=== PATIENT | male | born 1950 | race Caucasian/White ===

== ENCOUNTER 2019-08-12 10:34 | Inpatient (IN) ==
[2019-08-12] MEDS ORDERED: GLUCAGON 1 MG VIAL IM PRN ×2 (11:01)
[2019-08-12] MEDS ORDERED: DEXTROSE 10% 250 ML BAG IV PRN ×2 (11:01)
[2019-08-12 11:20] LABS: Basophils % 0.7 % (0.0-0.8); Eosinophils # 0.1 10*3/uL (0.0-0.87); Eosinophils % 2.2 % (0.00-10.9); Hematocrit 46.7 VOL% (42.0-52.0); Hemoglobin 15.6 GM/DL (14.0-18.0); Immature Granulocytes % 0.7 %; Immature Granulocytes Absolute 0.03 #; Lymphocytes % 22.9 % (21.2-54.2); Mean Corpuscular HGB Conc 33.4 GM/DL (32-36); Mean Corpuscular Volume 93.8 FL (87-102); Mean Platelet Volume 11.1 FL (9.6-12.0); Monocytes % 10.8 % (1.7-12.7); Neutrophils % 62.7 % (38.7-73.9); Platelet Count 125 T/CUMM (130-400); Red Blood Count 4.98 MC/CUMM (3.8-5.5); Red Cell Distribution Width 13.2 % (9.3-17.3); White Blood Count 4.6 T/CUMM (4-12)
[2019-08-12 11:39] LABS: Albumin 3.9 G/DL (3.4-5.0); Bilirubin,Total 0.8 MG/DL (0.2-1.0); Calcium 8.9 MG/DL (8.5-10.1); Total Protein 7.8 G/DL (6.4-8.3)
[2019-08-12] MEDS: INSULIN LISPRO 100 UNIT/ML SUBCUT SCH ×3 (12:07→21:19)
[2019-08-12] MEDS: SODIUM CHLORIDE 0.9% 1,000 ML IV SCH (12:09)
[2019-08-12] MEDS ORDERED: NITROGLYCERIN SL 0.4 MG TABLET SL PRN (13:39)
[2019-08-12] MEDS ORDERED: SIMVASTATIN 40 MG TABLET PO SCH (13:45)
[2019-08-12 14:21] LABS: ABG Base Excess 1.7 MMOL/L (-2.5-2.5); ABG HCO3 25.8 MMOL/L (20-26); ABG Oxygen Saturation 96.9 % (95-100); ABG PCO2 45.5 MM HG (35-48); ABG PH 7.387 (7.35-7.45); ABG PO2 84.1 MM HG (80-95); ABG TCO2 23.1 MMOL/L (23-27)
[2019-08-12] MEDS: CHLORHEXIDINE 4% SOLN 118 ML BOTTLE TOP SCH ×2 (14:57→21:19)
[2019-08-12] MEDS: hydroCHLOROthiazide 12.5 MG CAPSULE PO SCH (14:58)
[2019-08-12] MEDS: ISOSORBIDE MONONITRATE 20 MG TABLET PO SCH ×2 (14:59→21:18)
[2019-08-12] MEDS: amLODIPine 10 MG TABLET PO SCH (15:00)
[2019-08-12] MEDS ORDERED: ASPIRIN EC 325 MG TABLET PO SCH (21:00)
[2019-08-12] MEDS ORDERED: NIACIN 500 MG TABLET PO SCH (21:00)
[2019-08-12] MEDS: CHLORHEXIDINE 0.12% ORAL RINSE 60 ML BOTTLE SWISH/SPIT SCH (21:19)
[2019-08-13] MEDS ORDERED: VANCOMYCIN 500 MG VIAL ONE (04:22)
[2019-08-13] MEDS ORDERED: PAPAVERINE 60 MG/2 ML VIAL ONE (04:22)
[2019-08-13] MEDS ORDERED: VANCOMYCIN 1,000 MG VIAL ONE (04:22)
[2019-08-13] MEDS ORDERED: LACTATED RINGERS 1,000 ML IV SCH (06:00)
[2019-08-13] MEDS ORDERED: CEFUROXIME INJ 1,500 MG in SYRINGE 1 EACH IV ONE (06:00)
[2019-08-13] MEDS ORDERED: PHENYLEPHRINE DRIP 20 MG/250 ML PREMIX IV ONE (06:00)
[2019-08-13] MEDS ORDERED: CALCIUM CHLORIDE 1,000 MG/10 ML VIAL IV ONE (06:00)
[2019-08-13] MEDS ORDERED: HEPARIN/NACL 0.9% 2 UNITS/ML 500 ML IV ONE (06:00)
[2019-08-13] MEDS ORDERED: LORazepam 1 MG TABLET PO ONE (06:00)
[2019-08-13] MEDS ORDERED: PANTOPRAZOLE 40 MG TABLET PO ONE (06:00)
[2019-08-13] MEDS ORDERED: SODIUM CHLORIDE 0.9% 1,000 ML IV ONE (06:01)
[2019-08-13] MEDS ORDERED: LACTATED RINGERS 1,000 ML IV ONE (06:01)
[2019-08-13] MEDS ORDERED: ETOMIDATE 40 MG/20 ML VIAL IV ONE (06:01)
[2019-08-13] MEDS ORDERED: NITROGLYCERIN DRIP 50 MG/250 ML BOTTLE IV ONE (06:01)
[2019-08-13] MEDS ORDERED: ePHEDrine 50 MG/ML VIAL ONE (06:01)
[2019-08-13] MEDS ORDERED: MIDAZOLAM 10 MG/2 ML VIAL ONE (06:01)
[2019-08-13] MEDS ORDERED: SUFentanil 250 MCG/5 ML AMP ONE (06:01)
[2019-08-13] MEDS ORDERED: VECURONIUM 10 MG VIAL IV ONE (06:01)
[2019-08-13] MEDS ORDERED: AMINOCAPROIC ACID 5,000 MG/20 ML VIAL ONE (06:01)
[2019-08-13] MEDS ORDERED: SODIUM CHLORIDE 0.9% 250 ML IV ONE (06:01)
[2019-08-13 07:35] LABS: ABG Base Excess 2.9 MMOL/L (-2.5-2.5); ABG HCO3 27.3 MMOL/L (20-26); ABG Oxygen Saturation 99.2 % (95-100); ABG PCO2 41.1 MM HG (35-48); ABG PO2 365.9 MM HG (80-95); ABG TCO2 28.6 MMOL/L (23-27); Glucose Heart Surgery 157 MG/DL (74-106); Hemoglobin Heart Surgery 14.6 G/DL (14.0-18.0); Ionized Calcium Arterial 1.14 MMOL/L (1.21-1.46); PCO2 Patient Temp Arterial 41.1 MMHG; PO2 Patient Temp Arterial 365.9 MM HG; Patient Temperature 37 CELCIUS; Potassium Heart/CVR 3.5 MMOL/L (3.5-5.1); Sodium Heart/CVR 137 MMOL/L (135-145)
[2019-08-13 07:57] LABS: Apearance,Urine CLEAR (Clear); Bilirubin,Urine Negative (Negative); Blood, Urine Small mg/dL (Negative); Glucose,Urine (UA) Negative (Negative); Ketones,Urine Negative (Negative); Mucus,Urine Occasional /LPF (Occasional); Nitrite,Urine Negative (Negative); Protein,Urine Negative; RBC,Urine 1 /HPF (0-4); Transitional Epi Cells,Urine Occasional /HPF (<1); Urine Color Yellow (Yellow); Urine Urobilinogen < 2.0 EU/DL (0.2-1.0)
[2019-08-13 09:07] LABS: Hematocrit Heart Surgery 33.3 PERCENT (42-52); Hemoglobin Heart Surgery 10.8 G/DL (14.0-18.0); PCO2 Patient Temp Venous 37.6 MM HG; PH Patient Temp Venous 7.477; PO2 Patient Temp Venous 35.7 MM HG; Potassium Heart/CVR 3.6 MMOL/L (3.5-5.1); VBG Base Excess 4.3 MEQ/L (0-4); VBG Oxygen Saturation 82.4 %; VBG PCO2 43.5 MMHG (41-51); VBG PH 7.433; VBG PO2 43.9 MMHG (17-40)
[2019-08-13 09:35] LABS: Hemoglobin Heart Surgery 11.7 G/DL (14.0-18.0); PCO2 Patient Temp Venous 38.7 MM HG; PH Patient Temp Venous 7.475; PO2 Patient Temp Venous 36.6 MM HG; VBG Base Excess 4.8 MEQ/L (0-4); VBG HCO3 28.4 MEQ/L (24-28); VBG Oxygen Saturation 83.3 %; VBG PCO2 44.8 MMHG (41-51); VBG PH 7.431; VBG PO2 45.1 MMHG (17-40)
[2019-08-13 10:06] LABS: Hemoglobin Heart Surgery 13.2 G/DL (14.0-18.0); PCO2 Patient Temp Venous 39.7 MM HG; PH Patient Temp Venous 7.457; PO2 Patient Temp Venous 42.9 MM HG; Potassium Heart/CVR 4.3 MMOL/L (3.5-5.1); VBG Base Excess 3.4 MEQ/L (0-4); VBG HCO3 27.4 MEQ/L (24-28); VBG Oxygen Saturation 81.8 %; VBG PCO2 39.7 MMHG (41-51); VBG PH 7.457; VBG PO2 42.9 MMHG (17-40)
[2019-08-13] MEDS ORDERED: THROMBIN TOPICAL (RECOMBINANT) 5,000 UNIT VIAL TOP ONE (10:06)
[2019-08-13 10:40] LABS: ABG Base Excess 2.8 MMOL/L (-2.5-2.5); ABG HCO3 26.9 MMOL/L (20-26); ABG PCO2 43.1 MM HG (35-48); ABG PH 7.417 (7.35-7.45); ABG TCO2 24.2 MMOL/L (23-27); Glucose Heart Surgery 235 MG/DL (74-106); Hematocrit Heart Surgery 39.9 PERCENT (42-52); Ionized Calcium Arterial 1.18 MMOL/L (1.21-1.46); PCO2 Patient Temp Arterial 43.1 MMHG; PH Patient Temp Arterial 7.417; Patient Temperature 37 CELCIUS; Potassium Heart/CVR 3.7 MMOL/L (3.5-5.1); Sodium Heart/CVR 139 MMOL/L (135-145)
[2019-08-13] MEDS ORDERED: PROTAMINE SULFATE 250 MG/25 ML VIAL IV ONE (10:46)
[2019-08-13] MEDS ORDERED: MAGNESIUM SULFATE 5 GM/10 ML VIAL IV ONE (10:46)
[2019-08-13] MEDS ORDERED: MANNITOL 100 GM/500 ML BAG IV ONE (10:46)
[2019-08-13] MEDS ORDERED: SODIUM BICARBONATE 50 MEQ/50 ML VIAL IV ONE ×2 (10:46→11:22)
[2019-08-13] MEDS ORDERED: ALBUMIN 25% 25 GM/100 ML VIAL IV ONE (10:46)
[2019-08-13] MEDS ORDERED: DEXTROSE 5% KCL 20 MEQ 20 MEQ/1,000 ML BAG IV ONE (10:46)
[2019-08-13] MEDS ORDERED: LIDOCAINE 2% 5 ML VIAL ONE (10:46)
[2019-08-13] MEDS ORDERED: FUROSEMIDE 20 MG/2 ML VIAL ONE (10:47)
[2019-08-13] MEDS ORDERED: methylPREDNISolone SOD SUC 1,000 MG/8 ML VIAL ONE (10:47)
[2019-08-13] MEDS ORDERED: PROTAMINE SULFATE 50 MG/5 ML VIAL IV ONE ×2 (10:47→11:44)
[2019-08-13] MEDS ORDERED: HEPARIN 10,000 UNIT/10 ML VIAL ONE (10:47)
[2019-08-13] MEDS ORDERED: POTASSIUM CHLORIDE RIDER 100 ML IV ONE (11:22)
[2019-08-13] MEDS ORDERED: PHENYLEPHRINE DRIP 40 MG/250 ML PREMIX IV ONE (11:22)
[2019-08-13] MEDS ORDERED: CALCIUM CHLORIDE 1,000 MG/10 ML SYRINGE IV ONE (11:22)
[2019-08-13] MEDS ORDERED: ALBUMIN 5% 12.5 GM/250 ML VIAL IV ONE (11:23)
[2019-08-13] MEDS ORDERED: MIDAZOLAM 10 MG/2 ML VIAL IV PRN (11:39)
[2019-08-13] MEDS ORDERED: ALBUMIN 5% 12.5 GM in PREMIX 1 EACH IV PRN (11:39)
[2019-08-13] MEDS ORDERED: INSULIN REGULAR 100 UNIT/ML IV PRN (11:39)
[2019-08-13] MEDS ORDERED: MORPHINE 10 MG/1 ML VIAL IV PRN (11:39)
[2019-08-13] MEDS ORDERED: PHENYLEPHRINE DRIP 40 MG/250 ML PREMIX IV PRN (11:39)
[2019-08-13] MEDS ORDERED: ACETAMINOPHEN 650 MG SUPP RECTAL PRN (11:39)
[2019-08-13] MEDS ORDERED: POTASSIUM CHLORIDE RIDER 10 MEQ in PREMIX 1 EACH IV PRN (11:39)
[2019-08-13] MEDS ORDERED: ONDANSETRON 4 MG/2 ML VIAL IV PRN (11:39)
[2019-08-13] MEDS ORDERED: NITROPRUSSIDE 100 MG in DEXTROSE 5% 250 ML IV PRN (11:39)
[2019-08-13] MEDS ORDERED: DEXTROSE 10% 250 ML BAG IV PRN ×2 (11:39)
[2019-08-13] MEDS ORDERED: CALCIUM CHLORIDE 1,000 MG/10 ML SYRINGE IV PRN (11:39)
[2019-08-13] MEDS ORDERED: MAGNESIUM SULF RIDER 4 GM in PREMIX 1 EACH IV PRN (11:39)
[2019-08-13] MEDS ORDERED: MAGNESIUM SULF RIDER 2 GM in PREMIX 1 EACH IV PRN (11:39)
[2019-08-13] MEDS ORDERED: VECURONIUM 10 MG VIAL IV PRN ×2 (11:39)
[2019-08-13] MEDS ORDERED: INSULIN REGULAR 100 UNIT/ML IV ONE (11:39)
[2019-08-13] MEDS ORDERED: MIDAZOLAM 2 MG/2 ML VIAL IV PRN (11:39)
[2019-08-13] MEDS ORDERED: MORPHINE 4 MG/1 ML VIAL IV PRN (11:39)
[2019-08-13] MEDS ORDERED: GLYCOPYRROLATE 0.4 MG/2 ML VIAL ONE (11:47)
[2019-08-13 11:49] LABS: ABG Base Excess 1.9 MMOL/L (-2.5-2.5); ABG HCO3 26.1 MMOL/L (20-26); ABG Oxygen Saturation 99.4 % (95-100); ABG PCO2 41.6 MM HG (35-48); ABG PH 7.415 (7.35-7.45); ABG TCO2 23.1 MMOL/L (23-27); Glucose Heart Surgery 216 MG/DL (74-106); Hematocrit Heart Surgery 41.6 PERCENT (42-52); Hemoglobin Heart Surgery 13.6 G/DL (14.0-18.0)
[2019-08-13 11:57] LABS: Basophils % 0.3 % (0.0-0.8); Eosinophils # 0.1 10*3/uL (0.0-0.87); Eosinophils % 0.9 % (0.00-10.9); Hematocrit 38.8 VOL% (42.0-52.0); Hemoglobin 13.2 GM/DL (14.0-18.0); Immature Granulocytes % 0.5 %; Immature Granulocytes Absolute 0.03 #; Lymphocytes # 0.5 10*3/uL (1.4-4.0); Lymphocytes % 8.6 % (21.2-54.2); Mean Corpuscular Volume 91.3 FL (87-102); Mean Platelet Volume 11.4 FL (9.6-12.0); Neutrophils % 83.7 % (38.7-73.9); Red Blood Count 4.25 MC/CUMM (3.8-5.5); Red Cell Distribution Width 12.9 % (9.3-17.3); White Blood Count 5.8 T/CUMM (4-12)
[2019-08-13 11:58] LABS: Platelet Count 109 T/CUMM (130-400)
[2019-08-13] MEDS: CHLORHEXIDINE 4% SOLN 118 ML BOTTLE TOP SCH (12:00)
[2019-08-13] MEDS ORDERED: SODIUM CHLORIDE 0.45% 1,000 ML IV SCH ×2 (12:00)
[2019-08-13] MEDS: LACTATED RINGERS 250 ML IV PRN ×8 (12:00→14:20)
[2019-08-13] MEDS: INSULIN LISPRO 100 UNIT/ML SUBCUT SCH (12:03)
[2019-08-13] MEDS: SODIUM CHLORIDE 0.9% 1,000 ML IV SCH (12:03)
[2019-08-13] MEDS: CHLORHEXIDINE 0.12% ORAL RINSE 60 ML BOTTLE SWISH/SPIT SCH ×2 (12:03→20:51)
[2019-08-13] MEDS: ISOSORBIDE MONONITRATE 20 MG TABLET PO SCH (12:04)
[2019-08-13] MEDS: amLODIPine 10 MG TABLET PO SCH (12:04)
[2019-08-13] MEDS: hydroCHLOROthiazide 12.5 MG CAPSULE PO SCH (12:04)
[2019-08-13 12:12] LABS: INR 1.1; PT Patient Result 11.4 SECS (9.8-11.9); Partial Thromboplastin Time 28.1 SECS (23.9-33.8)
[2019-08-13] MEDS: POTASSIUM CHLORIDE RIDER 20 MEQ in PREMIX 1 EACH IV PRN ×4 (12:20→21:15)
[2019-08-13 12:22] LABS: Albumin 3.7 G/DL (3.4-5.0); Bilirubin,Total 2.2 MG/DL (0.2-1.0); Calcium 9.1 MG/DL (8.5-10.1); Osmolality,Calculated 279.7 MOS/KG (273-304); Total Protein 6.7 G/DL (6.4-8.3)
[2019-08-13] MEDS: KETOROLAC 30 MG/1 ML VIAL IV SCH ×3 (12:22→23:30)
[2019-08-13] MEDS: INSULIN REGULAR DRIP 100 ML IV SCH (12:27)
[2019-08-13 12:28] LABS: CKMB % 5.2 %
[2019-08-13 12:35] LABS: Troponin I 3.6 NG/ML (0.00-0.045)
[2019-08-13 13:20] LABS: Anisocytosis Slight; Macrocytosis Slight; Platelet Estimate Adequate
[2019-08-13 15:09] LABS: ABG HCO3 26.2 MMOL/L (20-26); ABG Oxygen Saturation 98.7 % (95-100); ABG PCO2 40.6 MM HG (35-48); ABG PH 7.423 (7.35-7.45); ABG TCO2 23.4 MMOL/L (23-27); Glucose Heart Surgery 187 MG/DL (74-106); Hematocrit Heart Surgery 37.3 PERCENT (42-52); Hemoglobin Heart Surgery 12.1 G/DL (14.0-18.0); Potassium Heart/CVR 3.4 MMOL/L (3.5-5.1)
[2019-08-13] MEDS ORDERED: SODIUM CHLORIDE 0.9% 1,000 ML IV PRN (16:19)
[2019-08-13 17:06] LABS: ABG Base Excess 1.8 MMOL/L (-2.5-2.5); ABG Oxygen Saturation 98.1 % (95-100); ABG PH 7.375 (7.35-7.45); ABG PO2 97.9 MM HG (80-95); ABG TCO2 24.8 MMOL/L (23-27); Glucose Heart Surgery 158 MG/DL (74-106); Hematocrit Heart Surgery 33.6 PERCENT (42-52); Hemoglobin Heart Surgery 10.9 G/DL (14.0-18.0); Potassium Heart/CVR 3.9 MMOL/L (3.5-5.1)
[2019-08-13 20:04] LABS: ABG Oxygen Saturation 95.4 % (95-100); ABG PCO2 47.2 MM HG (35-48); ABG PO2 74.3 MM HG (80-95); ABG TCO2 25.9 MMOL/L (23-27); Glucose Heart Surgery 118 MG/DL (74-106); Hematocrit Heart Surgery 32.2 PERCENT (42-52); Hemoglobin Heart Surgery 10.4 G/DL (14.0-18.0); Potassium Heart/CVR 3.8 MMOL/L (3.5-5.1)
[2019-08-13 20:25] LABS: CKMB % 4.2 %
[2019-08-13 20:27] LABS: Troponin I 2.48 NG/ML (0.00-0.045)
[2019-08-13] MEDS: CEFUROXIME INJ 1,500 MG in SYRINGE 1 EACH IV SCH (20:50)
[2019-08-13] MEDS ORDERED: SIMVASTATIN 40 MG TABLET PO SCH (21:00)
[2019-08-13] MEDS ORDERED: FUROSEMIDE 40 MG/4 ML VIAL IV ONE (21:09)
[2019-08-14 00:12] LABS: ABG Base Excess 2.8 MMOL/L (-2.5-2.5); ABG HCO3 27.6 MMOL/L (20-26); ABG Oxygen Saturation 94.1 % (95-100); ABG PCO2 43.5 MM HG (35-48); ABG PO2 71.1 MM HG (80-95); ABG TCO2 28.9 MMOL/L (23-27); Glucose Heart Surgery 129 MG/DL (74-106); Hemoglobin Heart Surgery 10.7 G/DL (14.0-18.0)
[2019-08-14] MEDS: POTASSIUM CHLORIDE RIDER 20 MEQ in PREMIX 1 EACH IV PRN ×2 (01:06→05:47)
[2019-08-14 01:17] LABS: ABG Base Excess 3.5 MMOL/L (-2.5-2.5); ABG HCO3 27.5 MMOL/L (20-26); ABG Oxygen Saturation 95.8 % (95-100); ABG PCO2 42.5 MM HG (35-48); ABG PH 7.429 (7.35-7.45); ABG PO2 71.2 MM HG (80-95); ABG TCO2 25.5 MMOL/L (23-27); Glucose Heart Surgery 139 MG/DL (74-106); Hematocrit Heart Surgery 31.9 PERCENT (42-52); Hemoglobin Heart Surgery 10.3 G/DL (14.0-18.0)
[2019-08-14 02:07] LABS: ABG Base Excess 2.4 MMOL/L (-2.5-2.5); ABG HCO3 25.9 MMOL/L (20-26); ABG Oxygen Saturation 96.6 % (95-100); ABG PCO2 35.8 MM HG (35-48); ABG PH 7.477 (7.35-7.45); ABG PO2 86.6 MM HG (80-95); Glucose Heart Surgery 133 MG/DL (74-106); Hemoglobin Heart Surgery 11.1 G/DL (14.0-18.0); Potassium Heart/CVR 4.3 MMOL/L (3.5-5.1)
[2019-08-14 02:35] LABS: ABG Base Excess 2.7 MMOL/L (-2.5-2.5); ABG HCO3 26.8 MMOL/L (20-26); ABG PCO2 42.5 MM HG (35-48); ABG PH 7.419 (7.35-7.45); ABG PO2 80.5 MM HG (80-95); ABG TCO2 24.8 MMOL/L (23-27); Glucose Heart Surgery 150 MG/DL (74-106); Hematocrit Heart Surgery 32.6 PERCENT (42-52); Hemoglobin Heart Surgery 10.5 G/DL (14.0-18.0); Potassium Heart/CVR 4.3 MMOL/L (3.5-5.1)
[2019-08-14 04:02] LABS: Basophils % 0.1 % (0.0-0.8); Hematocrit 30.9 VOL% (42.0-52.0); Hemoglobin 10.4 GM/DL (14.0-18.0); Immature Granulocytes % 0.4 %; Immature Granulocytes Absolute 0.05 #; Lymphocytes # 0.4 10*3/uL (1.4-4.0); Lymphocytes % 3.9 % (21.2-54.2); Mean Corpuscular HGB Conc 33.7 GM/DL (32-36); Mean Corpuscular Volume 94.2 FL (87-102); Mean Platelet Volume 11.3 FL (9.6-12.0); Monocytes % 4.8 % (1.7-12.7); Neutrophils % 90.8 % (38.7-73.9); Platelet Count 132 T/CUMM (130-400); Red Blood Count 3.28 MC/CUMM (3.8-5.5); Red Cell Distribution Width 13.3 % (9.3-17.3); White Blood Count 11.2 T/CUMM (4-12)
[2019-08-14 04:07] LABS: ABG Base Excess 2.1 MMOL/L (-2.5-2.5); ABG HCO3 26.8 MMOL/L (20-26); ABG Oxygen Saturation 98.4 % (95-100); ABG PCO2 42.6 MM HG (35-48); ABG PH 7.417 (7.35-7.45); ABG PO2 132.7 MM HG (80-95); ABG TCO2 28.1 MMOL/L (23-27); Glucose Heart Surgery 126 MG/DL (74-106); Hemoglobin Heart Surgery 10.8 G/DL (14.0-18.0); Potassium Heart/CVR 4.2 MMOL/L (3.5-5.1)
[2019-08-14 04:41] LABS: Band Neutrophils 1 % (0-10); Hypochromasia 1+; Lymphocytes 3 % (20-55); Platelet Estimate Normal; Segmented Neutrophils 94 % (50-85); Total Cells Counted 100
[2019-08-14 04:46] LABS: Albumin 3.4 G/DL (3.4-5.0); Bilirubin,Direct 0.23 MG/DL (0.0-0.20); Bilirubin,Total 1.3 MG/DL (0.2-1.0); Calcium 8.4 MG/DL (8.5-10.1); Osmolality,Calculated 279.4 MOS/KG (273-304); Total Protein 6.3 G/DL (6.4-8.3)
[2019-08-14] MEDS: INSULIN REGULAR DRIP 100 ML IV SCH (04:48)
[2019-08-14 04:49] LABS: CKMB % 3.6 %
[2019-08-14 04:54] LABS: Troponin I 2.37 NG/ML (0.00-0.045)
[2019-08-14] MEDS: KETOROLAC 30 MG/1 ML VIAL IV SCH ×4 (05:14→18:08)
[2019-08-14 05:30] LABS: ABG Base Excess 2.7 MMOL/L (-2.5-2.5); ABG HCO3 26.8 MMOL/L (20-26); ABG PCO2 46.9 MM HG (35-48); ABG PH 7.388 (7.35-7.45); ABG PO2 67.5 MM HG (80-95); ABG TCO2 25.7 MMOL/L (23-27); Glucose Heart Surgery 128 MG/DL (74-106); Hematocrit Heart Surgery 31.4 PERCENT (42-52); Hemoglobin Heart Surgery 10.2 G/DL (14.0-18.0); Potassium Heart/CVR 4.1 MMOL/L (3.5-5.1)
[2019-08-14] MEDS ORDERED: GABAPENTIN 100 MG CAPSULE PO PRN (06:17)
[2019-08-14] MEDS: CEFUROXIME INJ 1,500 MG in SYRINGE 1 EACH IV SCH (06:40)
[2019-08-14] MEDS ORDERED: PANTOPRAZOLE 20 MG TABLET PO PRN (06:56)
[2019-08-14] MEDS: metFORMIN 500 MG TABLET PO SCH ×2 (07:35→18:07)
[2019-08-14] MEDS ORDERED: INSULIN REGULAR 100 UNIT/ML SUBCUT SCH (08:00)
[2019-08-14] MEDS ORDERED: INSULIN LISPRO 100 UNIT/ML SUBCUT SCH (08:00)
[2019-08-14] MEDS: hydroCHLOROthiazide 12.5 MG CAPSULE PO SCH (08:34)
[2019-08-14] MEDS: INSULIN REGULAR 100 UNIT/ML SUBCUT SCH ×4 (08:38→21:37)
[2019-08-14] MEDS: CHLORHEXIDINE 0.12% ORAL RINSE 60 ML BOTTLE SWISH/SPIT SCH ×3 (08:39→21:38)
[2019-08-14] MEDS: SODIUM CHLOR 0.45% KCL 20 MEQ 20 MEQ/1,000 ML BAG IV SCH (08:40)
[2019-08-14] MEDS ORDERED: amLODIPine 10 MG TABLET PO SCH (09:00)
[2019-08-14 12:04] LABS: CKMB % 2.8 %
[2019-08-14 12:06] LABS: Troponin I 2.36 NG/ML (0.00-0.045)
[2019-08-14] MEDS ORDERED: ONDANSETRON 4 MG/2 ML VIAL IV PRN (12:24)
[2019-08-14] MEDS ORDERED: MAGNESIUM SULF RIDER 2 GM in PREMIX 1 EACH IV PRN (12:24)
[2019-08-14] MEDS ORDERED: GLUCAGON 1 MG VIAL IM PRN ×2 (12:24)
[2019-08-14] MEDS ORDERED: MAGNESIUM SULF RIDER 4 GM in PREMIX 1 EACH IV PRN (12:24)
[2019-08-14] MEDS ORDERED: ACETAMINOPHEN 325 MG TABLET PO PRN (12:24)
[2019-08-14] MEDS ORDERED: oxyCODONE/ACETAMINOPHEN 5-325 MG TABLET PO PRN (12:24)
[2019-08-14] MEDS ORDERED: DEXTROSE 10% 250 ML BAG IV PRN ×2 (12:24)
[2019-08-14] MEDS ORDERED: MAGNESIUM HYDROXIDE SUSP 30 ML UDCUP PO PRN (12:24)
[2019-08-14] MEDS ORDERED: ALUMINUM/MAGNES/SIMETH MAX STR 30 ML UDCUP PO PRN (12:24)
[2019-08-14] MEDS ORDERED: SODIUM CHLOR 0.45% KCL 20 MEQ 20 MEQ/1,000 ML BAG IV SCH (12:24)
[2019-08-14] MEDS ORDERED: ZALEPLON 5 MG CAPSULE PO PRN (12:24)
[2019-08-14] MEDS: FERROUS SULFATE 325 MG TABLET PO SCH (13:46)
[2019-08-14] MEDS: PANTOPRAZOLE 40 MG TABLET PO SCH (13:46)
[2019-08-14] MEDS: ASPIRIN EC 325 MG TABLET PO SCH (13:46)
[2019-08-14] MEDS: DOCUSATE SODIUM 100 MG CAPSULE PO SCH (13:46)
[2019-08-14] MEDS ORDERED: CETIRIZINE 10 MG TABLET PO SCH (19:00)
[2019-08-14] MEDS: SIMVASTATIN 40 MG TABLET PO SCH (21:35)
[2019-08-14] MEDS: carvediloL 3.125 MG TABLET PO SCH (21:37)
[2019-08-14] MEDS: NIACIN 500 MG TABLET PO SCH (21:37)
[2019-08-15] MEDS: INSULIN REGULAR 100 UNIT/ML SUBCUT SCH ×6 (00:41→21:27)
[2019-08-15] MEDS: KETOROLAC 30 MG/1 ML VIAL IV SCH ×4 (00:41→18:42)
[2019-08-15 05:31] LABS: Basophils % 0.1 % (0.0-0.8); Hematocrit 28.7 VOL% (42.0-52.0); Hemoglobin 9.3 GM/DL (14.0-18.0); Immature Granulocytes % 0.6 %; Immature Granulocytes Absolute 0.06 #; Lymphocytes # 0.7 10*3/uL (1.4-4.0); Lymphocytes % 6.6 % (21.2-54.2); Mean Corpuscular HGB Conc 32.4 GM/DL (32-36); Mean Corpuscular Volume 98.3 FL (87-102); Mean Platelet Volume 11.8 FL (9.6-12.0); Monocytes % 10.3 % (1.7-12.7); Neutrophils % 82.4 % (38.7-73.9); Platelet Count 102 T/CUMM (130-400); Red Blood Count 2.92 MC/CUMM (3.8-5.5); Red Cell Distribution Width 13.7 % (9.3-17.3); White Blood Count 10.2 T/CUMM (4-12)
[2019-08-15 05:47] LABS: Alanine Aminotransferase 34 U/L (16-61); Albumin 3.2 G/DL (3.4-5.0); Alkaline Phosphatase 54 U/L (45-117); Aspartate Amino Transferase 25 U/L (0-37); Bilirubin,Indirect 1.5 MG/DL (0.0-1.0); Blood Urea Nitrogen 18 MG/DL (7-18); Calcium 8.3 MG/DL (8.5-10.1); Estimated Glom Filtration Rate 117 ML/MIN; Glucose 143 MG/DL (74-106); Osmolality,Calculated 276.8 MOS/KG (273-304); Total Protein 6.5 G/DL (6.4-8.3)
[2019-08-15] MEDS ORDERED: FUROSEMIDE 40 MG/4 ML VIAL IV ONE (06:00)
[2019-08-15 06:09] LABS: Hypochromasia 1+; Platelet Estimate Decreased
[2019-08-15] MEDS: metFORMIN 500 MG TABLET PO SCH ×2 (08:34→16:35)
[2019-08-15] MEDS: hydroCHLOROthiazide 12.5 MG CAPSULE PO SCH (08:34)
[2019-08-15] MEDS: carvediloL 3.125 MG TABLET PO SCH ×2 (08:34→22:32)
[2019-08-15] MEDS: FERROUS SULFATE 325 MG TABLET PO SCH (08:34)
[2019-08-15] MEDS: PANTOPRAZOLE 40 MG TABLET PO SCH (08:34)
[2019-08-15] MEDS: DOCUSATE SODIUM 100 MG CAPSULE PO SCH (08:34)
[2019-08-15] MEDS: SODIUM CHLOR 0.45% KCL 20 MEQ 20 MEQ/1,000 ML BAG IV SCH (08:44)
[2019-08-15] MEDS: CHLORHEXIDINE 0.12% ORAL RINSE 60 ML BOTTLE SWISH/SPIT SCH ×2 (08:46→22:53)
[2019-08-15] MEDS: ASPIRIN EC 325 MG TABLET PO SCH (08:47)
[2019-08-15] MEDS: CETIRIZINE 10 MG TABLET PO SCH (22:32)
[2019-08-15] MEDS: SIMVASTATIN 40 MG TABLET PO SCH (22:32)
[2019-08-15] MEDS: NIACIN 500 MG TABLET PO SCH (22:33)
[2019-08-16] MEDS: INSULIN REGULAR 100 UNIT/ML SUBCUT SCH ×6 (00:04→22:13)
[2019-08-16] MEDS: KETOROLAC 30 MG/1 ML VIAL IV SCH ×4 (01:30→18:04)
[2019-08-16 06:53] LABS: Basophils % 0.1 % (0.0-0.8); Eosinophils % 0.3 % (0.00-10.9); Hematocrit 27.9 VOL% (42.0-52.0); Hemoglobin 9.4 GM/DL (14.0-18.0); Immature Granulocytes % 0.7 %; Immature Granulocytes Absolute 0.05 #; Lymphocytes % 14.2 % (21.2-54.2); Mean Corpuscular HGB Conc 33.7 GM/DL (32-36); Mean Corpuscular Volume 94.6 FL (87-102); Monocytes % 10.3 % (1.7-12.7); Neutrophils % 74.4 % (38.7-73.9); Platelet Count 102 T/CUMM (130-400); Red Blood Count 2.95 MC/CUMM (3.8-5.5); Red Cell Distribution Width 13.3 % (9.3-17.3)
[2019-08-16 07:09] LABS: Alanine Aminotransferase 29 U/L (16-61); Albumin 3.1 G/DL (3.4-5.0); Alkaline Phosphatase 57 U/L (45-117); Aspartate Amino Transferase 18 U/L (0-37); Bilirubin,Indirect 2.2 MG/DL (0.0-1.0); Blood Urea Nitrogen 19 MG/DL (7-18); Calcium 8.3 MG/DL (8.5-10.1); Estimated Glom Filtration Rate 132 ML/MIN; Glucose 128 MG/DL (74-106); Osmolality,Calculated 280.5 MOS/KG (273-304); Total Protein 6.6 G/DL (6.4-8.3)
[2019-08-16] MEDS: POTASSIUM CHLORIDE 20 MEQ TABLET PO PRN ×2 (07:28→08:26)
[2019-08-16] MEDS: carvediloL 3.125 MG TABLET PO SCH ×2 (09:40→21:46)
[2019-08-16] MEDS: FERROUS SULFATE 325 MG TABLET PO SCH (09:40)
[2019-08-16] MEDS: DOCUSATE SODIUM 100 MG CAPSULE PO SCH (09:40)
[2019-08-16] MEDS: metFORMIN 500 MG TABLET PO SCH ×2 (09:40→16:19)
[2019-08-16] MEDS: hydroCHLOROthiazide 12.5 MG CAPSULE PO SCH (09:40)
[2019-08-16] MEDS: ASPIRIN EC 325 MG TABLET PO SCH (09:40)
[2019-08-16] MEDS: PANTOPRAZOLE 40 MG TABLET PO SCH (09:40)
[2019-08-16] MEDS: CHLORHEXIDINE 0.12% ORAL RINSE 60 ML BOTTLE SWISH/SPIT SCH ×2 (09:41→21:50)
[2019-08-16] MEDS ORDERED: POTASSIUM CHLORIDE 20 MEQ TABLET PO ONE (10:19)
[2019-08-16] MEDS: ASCORBIC ACID 500 MG TABLET PO SCH ×2 (10:39→21:48)
[2019-08-16] MEDS: SODIUM CHLOR 0.45% KCL 20 MEQ 20 MEQ/1,000 ML BAG IV SCH (13:16)
[2019-08-16] MEDS: POLYVINYL ALCOHOL 1.4% OPH SOLN 15 ML BOTTLE BOTH EYES PRN ×2 (16:10→21:50)
[2019-08-16] MEDS: CETIRIZINE 10 MG TABLET PO SCH (21:45)
[2019-08-16] MEDS: ROSUVASTATIN 20 MG TABLET PO SCH (21:46)
[2019-08-16] MEDS: NIACIN 500 MG TABLET PO SCH (21:47)
[2019-08-17] MEDS: KETOROLAC 30 MG/1 ML VIAL IV SCH ×2 (02:14→07:14)
[2019-08-17 03:49] LABS: Basophils % 0.1 % (0.0-0.8); Eosinophils # 0.1 10*3/uL (0.0-0.87); Eosinophils % 1.2 % (0.00-10.9); Hematocrit 29.5 VOL% (42.0-52.0); Hemoglobin 9.6 GM/DL (14.0-18.0); Immature Granulocytes % 0.7 %; Immature Granulocytes Absolute 0.05 #; Lymphocytes # 0.6 10*3/uL (1.4-4.0); Lymphocytes % 8.1 % (21.2-54.2); Mean Corpuscular HGB Conc 32.5 GM/DL (32-36); Mean Corpuscular Volume 95.5 FL (87-102); Mean Platelet Volume 11.6 FL (9.6-12.0); Monocytes % 9.1 % (1.7-12.7); NRBC # 0.02 10*3/uL; Neutrophils % 80.8 % (38.7-73.9); Platelet Count 122 T/CUMM (130-400); Red Blood Count 3.09 MC/CUMM (3.8-5.5); Red Cell Distribution Width 13.5 % (9.3-17.3); White Blood Count 6.9 T/CUMM (4-12)
[2019-08-17 04:16] LABS: Calcium 8.6 MG/DL (8.5-10.1)
[2019-08-17 05:51] LABS: Platelet Estimate Normal
[2019-08-17] MEDS: SODIUM CHLOR 0.45% KCL 20 MEQ 20 MEQ/1,000 ML BAG IV SCH (08:06)
[2019-08-17] MEDS: INSULIN REGULAR 100 UNIT/ML SUBCUT SCH ×4 (08:08→22:48)
[2019-08-17] MEDS: metFORMIN 500 MG TABLET PO SCH ×2 (08:24→16:35)
[2019-08-17] MEDS: hydroCHLOROthiazide 12.5 MG CAPSULE PO SCH (08:24)
[2019-08-17] MEDS: ASPIRIN EC 325 MG TABLET PO SCH (08:24)
[2019-08-17] MEDS: ASCORBIC ACID 500 MG TABLET PO SCH ×2 (08:25→21:35)
[2019-08-17] MEDS: POTASSIUM CHLORIDE 20 MEQ TABLET PO PRN ×2 (08:25→09:44)
[2019-08-17] MEDS: DOCUSATE SODIUM 100 MG CAPSULE PO SCH (08:25)
[2019-08-17] MEDS: PANTOPRAZOLE 40 MG TABLET PO SCH (08:25)
[2019-08-17] MEDS: CHLORHEXIDINE 0.12% ORAL RINSE 60 ML BOTTLE SWISH/SPIT SCH ×2 (08:26→21:38)
[2019-08-17] MEDS: FERROUS SULFATE 325 MG TABLET PO SCH (08:26)
[2019-08-17] MEDS: carvediloL 3.125 MG TABLET PO SCH ×2 (08:26→21:36)
[2019-08-17] MEDS: ROSUVASTATIN 20 MG TABLET PO SCH (21:35)
[2019-08-17] MEDS: CETIRIZINE 10 MG TABLET PO SCH (21:36)
[2019-08-17] MEDS: NIACIN 500 MG TABLET PO SCH (21:37)
[2019-08-18 05:55] LABS: Basophils % 0.2 % (0.0-0.8); Eosinophils # 0.1 10*3/uL (0.0-0.87); Eosinophils % 2.6 % (0.00-10.9); Hematocrit 29.1 VOL% (42.0-52.0); Hemoglobin 9.6 GM/DL (14.0-18.0); Immature Granulocytes % 1.3 %; Immature Granulocytes Absolute 0.07 #; Lymphocytes % 18.2 % (21.2-54.2); Mean Corpuscular Volume 95.4 FL (87-102); Mean Platelet Volume 11.2 FL (9.6-12.0); Monocytes % 11.3 % (1.7-12.7); NRBC # 0.03 10*3/uL; Neutrophils % 66.4 % (38.7-73.9); Platelet Count 150 T/CUMM (130-400); Red Blood Count 3.05 MC/CUMM (3.8-5.5); Red Cell Distribution Width 13.7 % (9.3-17.3); White Blood Count 5.3 T/CUMM (4-12)
[2019-08-18] MEDS: POLYVINYL ALCOHOL 1.4% OPH SOLN 15 ML BOTTLE BOTH EYES PRN ×2 (06:15→09:50)
[2019-08-18 06:16] LABS: Alanine Aminotransferase 30 U/L (16-61); Albumin 3.1 G/DL (3.4-5.0); Alkaline Phosphatase 68 U/L (45-117); Aspartate Amino Transferase 18 U/L (0-37); Blood Urea Nitrogen 16 MG/DL (7-18); Calcium 8.5 MG/DL (8.5-10.1); Estimated Glom Filtration Rate 132 ML/MIN; Glucose 127 MG/DL (74-106); Total Protein 6.8 G/DL (6.4-8.3); Troponin I 0.414 NG/ML (0.00-0.045)
[2019-08-18] MEDS: SODIUM CHLOR 0.45% KCL 20 MEQ 20 MEQ/1,000 ML BAG IV SCH (07:47)
[2019-08-18] MEDS: INSULIN REGULAR 100 UNIT/ML SUBCUT SCH ×4 (07:53→21:23)
[2019-08-18] MEDS ORDERED: AMIODARONE INJ 150 MG in DEXTROSE 5% 100 ML IV ONE (08:33)
[2019-08-18] MEDS ORDERED: AMIODARONE INJ 450 MG in DEXTROSE 5% 241 ML IV SCH ×2 (09:00→14:30)
[2019-08-18] MEDS: ASPIRIN EC 325 MG TABLET PO SCH (09:47)
[2019-08-18] MEDS: POTASSIUM CHLORIDE 20 MEQ TABLET PO PRN ×2 (09:48→16:13)
[2019-08-18] MEDS: PANTOPRAZOLE 40 MG TABLET PO SCH (09:48)
[2019-08-18] MEDS: DOCUSATE SODIUM 100 MG CAPSULE PO SCH (09:48)
[2019-08-18] MEDS: carvediloL 3.125 MG TABLET PO SCH (09:48)
[2019-08-18] MEDS: metFORMIN 500 MG TABLET PO SCH ×2 (09:49→16:13)
[2019-08-18] MEDS: FERROUS SULFATE 325 MG TABLET PO SCH (09:49)
[2019-08-18] MEDS: hydroCHLOROthiazide 12.5 MG CAPSULE PO SCH (09:49)
[2019-08-18] MEDS: AMIODARONE 200 MG TABLET PO SCH ×2 (09:49→21:22)
[2019-08-18] MEDS: ASCORBIC ACID 500 MG TABLET PO SCH ×2 (09:49→21:22)
[2019-08-18] MEDS: CHLORHEXIDINE 0.12% ORAL RINSE 60 ML BOTTLE SWISH/SPIT SCH ×2 (10:21→21:22)
[2019-08-18] MEDS: ROSUVASTATIN 20 MG TABLET PO SCH (21:21)
[2019-08-18] MEDS: NIACIN 500 MG TABLET PO SCH (21:21)
[2019-08-18] MEDS: CETIRIZINE 10 MG TABLET PO SCH (21:22)
[2019-08-18] MEDS: lisinopriL 2.5 MG TABLET PO SCH (21:22)
[2019-08-18] MEDS: carvediloL 6.25 MG TABLET PO SCH (21:22)
[2019-08-19 03:02] LABS: Basophils % 0.5 % (0.0-0.8); Eosinophils # 0.2 10*3/uL (0.0-0.87); Eosinophils % 2.5 % (0.00-10.9); Hematocrit 28.9 VOL% (42.0-52.0); Hemoglobin 9.4 GM/DL (14.0-18.0); Immature Granulocytes % 1.9 %; Immature Granulocytes Absolute 0.12 #; Lymphocytes % 14.7 % (21.2-54.2); Mean Corpuscular HGB Conc 32.5 GM/DL (32-36); Mean Corpuscular Volume 95.7 FL (87-102); Mean Platelet Volume 11.1 FL (9.6-12.0); Neutrophils % 69.4 % (38.7-73.9); Platelet Count 170 T/CUMM (130-400); Red Blood Count 3.02 MC/CUMM (3.8-5.5); Red Cell Distribution Width 14.1 % (9.3-17.3); White Blood Count 6.5 T/CUMM (4-12)
[2019-08-19 03:25] LABS: Alanine Aminotransferase 39 U/L (16-61); Albumin 3.1 G/DL (3.4-5.0); Alkaline Phosphatase 67 U/L (45-117); Aspartate Amino Transferase 22 U/L (0-37); Bilirubin,Indirect 1.6 MG/DL (0.0-1.0); Blood Urea Nitrogen 14 MG/DL (7-18); Calcium 8.7 MG/DL (8.5-10.1); Estimated Glom Filtration Rate 142 ML/MIN; Glucose 153 MG/DL (74-106); Osmolality,Calculated 276.8 MOS/KG (273-304); Total Protein 6.8 G/DL (6.4-8.3)
[2019-08-19 03:27] LABS: Troponin I 0.277 NG/ML (0.00-0.045)
[2019-08-19] MEDS: SODIUM CHLOR 0.45% KCL 20 MEQ 20 MEQ/1,000 ML BAG IV SCH (07:40)
[2019-08-19] MEDS: INSULIN REGULAR 100 UNIT/ML SUBCUT SCH (07:58)
[2019-08-19 08:17] VITALS: BP 138/64
[2019-08-19] MEDS: FERROUS SULFATE 325 MG TABLET PO SCH (09:38)
[2019-08-19] MEDS: DOCUSATE SODIUM 100 MG CAPSULE PO SCH (09:38)
[2019-08-19] MEDS: lisinopriL 2.5 MG TABLET PO SCH (09:38)
[2019-08-19] MEDS: ASPIRIN EC 325 MG TABLET PO SCH (09:38)
[2019-08-19] MEDS: hydroCHLOROthiazide 12.5 MG CAPSULE PO SCH (09:38)
[2019-08-19] MEDS: POTASSIUM CHLORIDE 20 MEQ TABLET PO PRN (09:39)
[2019-08-19] MEDS: metFORMIN 500 MG TABLET PO SCH (09:39)
[2019-08-19] MEDS: PANTOPRAZOLE 40 MG TABLET PO SCH (09:39)
[2019-08-19] MEDS: ASCORBIC ACID 500 MG TABLET PO SCH (09:39)
[2019-08-19] MEDS: AMIODARONE 200 MG TABLET PO SCH (09:39)
[2019-08-19] MEDS: carvediloL 6.25 MG TABLET PO SCH (09:39)
[2019-08-19] MEDS: POLYVINYL ALCOHOL 1.4% OPH SOLN 15 ML BOTTLE BOTH EYES PRN (09:42)
[2019-08-19] MEDS: CHLORHEXIDINE 0.12% ORAL RINSE 60 ML BOTTLE SWISH/SPIT SCH (09:43)
== END 2019-08-19 13:27 | disposition home health service (06) | DRG 236 ==
LOC: N.4E 10:34 → SUPCPDRO 10:34 → N.CVR 08-13 11:15 → N.ICU 08-14 07:25 → N.TELES 08-14 11:28